=== PATIENT | male | born 1950 | race Caucasian/White ===

== ENCOUNTER → 2019-12-05 | Day surgery (SDC) | payer OTHER, BC ==
[~2019-12-05] VITALS: Ht 182.9 cm; Wt 102.0 kg
[~2019-12-05] MED LIST: APR50 PO; ATORVASTATIN CA40 M1 PO; DILTIAZEM HCL120 M3 PO; KEFLEX500 M1 PO; LISINOPRIL-HYDR1 TA2 PO; LISPRO INSULIN; METFORMIN HCL500 M4 PO; XARELTO15 M1 PO
[2019-12-05 13:50] VITALS: BP 167/82
--- NOTE | 2019-12-05 14:15 | NUR ---
AT 1415 PATIENT WAS DC AFTER PERIPHERALLY INSERTED CENTRAL CATHETER PER PICC LINE NURSE.PT TOLERATED WELL.ATTENTED TO OBTAIN THE ANTIBIOTIC BECAUSE PT. IS ALLERGY TO PENICILLIN.DR SUAZO CALL INFORM REGARDING ALLERGY TO ANTIBIOTIC.INSTRUCTION WAS GIVEN TO PATIENT AND TO F/U WITH . PATIENT AND VERBALIZED TO UNDERSTANDING.NO COMPLAIN AND DISTRESS NOTED.
== END | disposition home or self-care (01) ==
LOC: DS 12-02 13:14
PROVIDERS: ATTEND Podiatrist Foot & Ankle Surgery
DX: M86.8X7 Other osteomyelitis, ankle and foot (principal); Z88.0 Allergy status to penicillin
CPT/HCPCS: 36569; Q0092